=== PATIENT | male | born 1990 | race Caucasian/White ===

== ENCOUNTER → 2019-07-19 14:45 | Outpatient (CLI) | payer BC, SELFPAY ==
--- NOTE | ~2019-07-19 | XR_ITS ---
EXAMINATION: XR ankle LT min 3V DATE: 07/19/2019 15:00 INDICATION: Left ankle pain. TECHNIQUE: 4 views of left ankle were obtained. COMPARISON: Left ankle radiographs 09/08/2003 FINDINGS: Bone alignment is normal. No fracture. Joint spaces are well maintained. There is an enthes ophyte at posterior aspect of calcaneal tuberosity. IMPRESSION: 1. No fracture. Reviewed, dictated and finalized at location A. ISH RUBBER IMPRESSION: 1. No fracture.
== END ==
PROVIDERS: PCP Emergency Medicine; Visit Provider Emergency Medicine
DX: M25.572 Pain in left ankle and joints of left foot (principal)
CPT/HCPCS: 73610

== ENCOUNTER 2019-08-11 13:31 | Emergency (ER) | payer BC, SELFPAY ==
--- NOTE | ~2019-08-11 | XR_ITS ---
EXAMINATION: XR chest 2V DATE: 08/11/2019 14:28 INDICATION: Chest pain TECHNIQUE: PA and lateral views of the chest are obtained. COMPARISON: None available FINDINGS: The lungs are free of acute opacities. There is no pleural effusion or pneumothorax. The ca rdiomediastinal silhouette is normal. The visualized bones and soft tissues are unremarkable. IMPRESSION: 1. No acute cardiopulmonary abnormality. Reviewed, dictated and finalized at location A. WORKER
[2019-08-11 13:50] VITALS: BP 128/73; PULSE 86; RESP 19; TEMP 36.8; O2SAT 98
--- NOTE | 2019-08-11 13:50 | ECG_ITS ---
Measurements Intervals [place] Rate: 86 P: 64 MT: 167 QRS: 21 QRSD: 85 T: 23 QT: 333 QTc: 400 Interpretive Statements SINUS RHYTHM NORMAL ECG Electronically Signed On 08-11-2019 13:51:34 [employer] OPERATOR by Dustin Arora D.O.
[2019-08-11 13:58] LABS: Basophils Percent Auto 0.4 % (0.2-1.2); Eosinophils Absolute Auto 0.2 K/mm3 (0-0.3); Eosinophils Percent Auto 3.1 % (0-4.4); Hemoglobin 14.5 g/dL (14.0-18.0); Immature Granulocyte Absolute 0.05 K/mm3 (0.00-0.031); Immature Granulocyte Percent A 0.7 % (0-0.5); Lymphocytes Absolute Auto 2.18 K/mm3 (0.9-3.2); Lymphocytes Percent Auto 31.7 % (18.3-44.2); Mean Corpuscular HGB Conc 33.7 g/dl (32-36); Mean Corpuscular Hemoglobin 29.9 pg (26-34); Mean Corpuscular Volume 88.7 fl (80-100); Mean Platelet Volume 9.2 fl (7.4-10.4); Monocytes Absolute Auto 0.4 K/mm3 (0.1-0.6); Neutrophils Percent Auto 58.1 % (45.5-73.1); Platelet Count Result 414 k/mm3 (150-375); Red Blood Count 4.85 M/mm3 (4.6-6.20); White Blood Count 6.9 K/mm3 (4.5-10.0)
[2019-08-11 14:09] LABS: Blood Urea Nitrogen 21 mg/dL (9-20); Calcium 9.1 mg/dL (8.4-10.2); Carbon Dioxide 28 mmol/L (22-30); Chloride 96 mmol/L (98-107); Estimated Glomerular Filt Rate 49; Glucose 79 mg/dL (75-110); Potassium 4.7 mmol/L (3.4-5.0); Prothrombin Time 12.9 Seconds (11.1-14.7); Sodium 138 mmol/L (137-145)
[2019-08-11 14:21] LABS: Troponin I < 0.012 ng/mL (0.000-0.034)
[2019-08-11 14:34] VITALS: BP 128/97; PULSE 85; RESP 16; TEMP 36.8; O2SAT 97
--- NOTE | 2019-08-11 15:52 | ED.GENADULT ---
HPI - General Adult General Chief complaint: Chest Pain Stated complaint: chest pain x 4 days Time Seen by Provider: 08/11/19 13:49 Source: patient Mode of arrival: ambulatory Limitations: no limitations History of Present Illness HPI narrative: Patient is a 29-year-old male who presents with chest pain that is been present off and on for the last 4 days pain presents in random locations of the left and right chest is made worse with exertion patient notes he was riding the treadmill today and had aching across the chest which resolved after cessation of working outpatient denies any recent illness similar occurrence in the past nor is he been seen for this complaint and presents per private vehicle in no distress Related Data Home Medications Medication Instructions Recorded Confirmed albuterol sulfate [ProAir HFA] INHALATION 08/11/19 omeprazole 08/11/19 08/11/19 Allergies Allergy/AdvReac Type Severity Reaction Status Date / Time shellfish derived Allergy Severe Anaphylactic Verified 08/11/19 14:35 Shock azithromycin Allergy Unknown Unknown Verified 08/11/19 14:35 iodine Allergy Unknown Edema Verified 08/11/19 14:35 sulfamethizole Allergy Unknown Nausea Verified 08/11/19 14:35 trimethoprim Allergy Unknown Nausea Verified 08/11/19 14:35 Review of Systems Review of Systems: All systems reviewed & are unremarkable except as noted in HPI and below PMFSH Social History Social History Smoking status: Never smoker Alcohol intake: current Gender identity (if verbalized by the patient): Male Exam Narrative: Exam Narrative: GENERAL: Well-appearing, well-nourished, and in no acute distress. HEAD: Normocephalic, atraumatic. EYES: PERRLA and EOMI. ENT: Nares clear, no rhinorrhea or epistaxis. Mucous membranes moist. Oropharynx without tonsillar hypertrophy exudate or other lesions. NECK: Supple. No adenopathy or masses. CHEST: Clear to auscultation. No respiratory distress. No wheezes rales or rhonchi HEART: Regular rate and rhythm. No murmur heard. Normal peripheral pulses. ABDOMEN: Soft, nontender, nondistended EXTREMITIES: Normal range of motion. No edema. SKIN: Warm, dry, no rash. NEURO: No focal deficits. Alert and oriented x3. Cranial nerves II through XII grossly intact PSYCH: Normal mood and affect. Course Course Emergency Course: Patient in the room at this time denying any pain resting comfortably in the room afebrile nontoxic-appearing no distress Vital Signs Vital signs: Vital Signs Temperature 98.2 F 08/11/19 13:50 Pulse Rate 86 08/11/19 13:50 Respiratory Rate 19 08/11/19 13:50 Blood Pressure 128/73 08/11/19 13:50 Pulse Oximetry 98 08/11/19 13:50 Temperature 98.2 F 08/11/19 14:34 Pulse Rate 85 08/11/19 14:34 Respiratory Rate 16 08/11/19 14:34 Blood Pressure 128/97 H 08/11/19 14:34 Pulse Oximetry 97 08/11/19 14:34 Medical Decision Making MDM Narrative Medical decision making narrative: Patients EKGs and labs are without significant high risk changes. Cardiac risk factor were reviewed. Patient is felt likely to be low risk for ACS and reasonable for further risk stratification testing as an outpatient. Pain was not sudden or maximal in onset without tearing or ripping. quality. No other signs or symptoms to suggest aortic dissection. A low-risk Wells criteria is noted. PE is felt to be unlikely. No pneumonia or URI symptoms were seen on evaluation today. Patient is felt to b resonable for continued evaluation as an outpatient. Vital Signs Vital Signs: Vital Signs Temperature 98.2 F 08/11/19 13:50 Pulse Rate 86 08/11/19 13:50 Respiratory Rate 19 08/11/19 13:50 Blood Pressure 128/73 08/11/19 13:50 Pulse Oximetry 98 08/11/19 13:50 Temperature 98.2 F 08/11/19 14:34 Pulse Rate 85 08/11/19 14:34 Respiratory Rate 16 08/11/19 14:34 Blood Pressure 128/97 H 08/11/19 14:34
[2019-08-11] MEDS: SODIUM CHLORIDE 0.9% IV 1,000 ML 999 ML IV CONT (16:04)
[2019-08-11 16:06] VITALS: BP 116/88; PULSE 81; RESP 12; O2SAT 98
[2019-08-11 16:31] LABS: Troponin I < 0.012 ng/mL (0.000-0.034)
--- NOTE | 2019-08-15 12:31 | PC.NURSE ---
LATE ENTRY This note is being entered to document information to the patient's record. The following information was omitted on [08/11/19], by [eugene cardenas]. ns start at 1604 end 1700
== END 2019-08-11 17:45 | disposition home or self-care (01) ==
PROVIDERS: Emergency Medicine Emergency Medical Services; Emergency Provider Emergency Medicine; PCP Emergency Medicine
DX: R07.9 Chest pain, unspecified (principal)
CPT/HCPCS: 36415; 71046; 80048; 84484; 85025; 85610; 85730; 93005; 96360; 99284; J7030

== ENCOUNTER 2020-05-25 02:23 | Outpatient (CLI) | payer BC, SELFPAY ==
[2020-05-25 18:46] LABS: SARS-CoV-2 RNA PCR Negative
== END 2020-05-25 02:24 | disposition home or self-care (01) ==
LOC: ANHCOVIDDT 02:24
PROVIDERS: PCP Emergency Medicine; Visit Provider Surgery
DX: Z01.812 Encounter for preprocedural laboratory examination (principal); Z20.828 Contact with and (suspected) exposure to other viral communicable diseases
CPT/HCPCS: 87635; C9803; U0003

== ENCOUNTER 2020-05-28 01:07 | Day surgery (SDC) | payer BC, SELFPAY ==
[2020-05-21 14:21] VITALS: BMI 25.8
[2020-05-28] MEDS: LACTATED RINGERS 1,000 ML 30 ML IV CONT ×2 (12:29→15:07)
[2020-05-28 12:32] VITALS: BP 104/75; PULSE 79; RESP 16; TEMP 37.3; O2SAT 99
--- NOTE | 2020-05-28 13:30 | P.PNAN_ITS ---
Anes - Initial Pre Proc Eval Procedure: Operation Date: 05/28/20 14:00 Proposed Procedures p Excision Of Pilonidal Cyst and Tract - Uziel Roberts MD Date/Time: 05/28/20 13:30 Surgeon: Uziel Roberts MD Pre Op Diagnosis: Pilonidal Cyst Patient Data Age: 30 Gender: M Height: 1.75 m Weight: 79.4 kg Last Vital Signs Temp 37.3 C 05/28/20 12:32 Pulse 79 05/28/20 12:32 Resp 16 05/28/20 12:32 BP 104/75 05/28/20 12:32 Pulse Ox 99 05/28/20 12:32 Allergies Allergy/AdvReac Type Severity Reaction Status Date / Time shellfish derived Allergy Severe Anaphylactic Verified 05/28/20 12:03 Shock Home Medications Medication Instructions Recorded Confirmed Type albuterol sulfate [ProAir HFA] 1 puff INHALATION PRN PRN 08/11/19 05/28/20 History omeprazole 20 mg PO PRN PRN 08/11/19 05/28/20 History Patient hx anesthesia problems: none Family hx anesthesia problems: none [facility] Past Medical History Medical History GERD (gastroesophageal reflux disease) Surgical History Surgical History [place] teeth removed Social History Social History Smoking status: Never smoker Second hand tobacco smoke exposure: No Alcohol intake: unknown Substance use: never Substance use type: does not use Living arrangements: with friend(s) Gender identity (if verbalized by the patient): Male Spiritual care concerns: No Anes - Eval Final PreProcedure Day of Procedure 05/28/20 13:30 Patient weight: overweight Heart: regular rate and rhythm Lungs: clear to auscultation and normal air movement Airway: Mallampati scale class II Neurological: alert and oriented Last oral intake: >/= 8 hours ASA classification: II Emergent: no Anesthetic plan: proceed Anesthesia type and monitoring: general ETT and standard monitoring Informed Consent: The patient's anesthetic plan and its attendant risks and benefits were discussed with the patient/family/POA. Questions were solicited and answers provided to the satisfaction of the patient/family/POA.
--- NOTE | 2020-05-28 13:47 | WPDHPUPDATE1 ---
History and Physical Update Update Date/Time: 05/28/20 13:47 History and Physical has been reviewed, including an updated exam of the patient. There are NO changes in the patient's condition. Risks, benefits, and alternatives have been discussed and questions answered. Patient agrees to proceed with procedure.
[2020-05-28] MEDS: ceFAZolin 2 GM/D5W 50 ML 2 GM/50 ML BAG IVPB (14:00)
[2020-05-28] MEDS: BUPIVACAINE/EPINEPHRINE 0.25% 10 ML VIAL 20 ML INFILTRATE (14:27)
[2020-05-28 15:07] VITALS: BP 133/102; PULSE 90; RESP 15; O2SAT 99
[2020-05-28 15:15] VITALS: BP 114/72; PULSE 95; RESP 16; O2SAT 98
--- NOTE | 2020-05-28 15:25 | P.OP_ITS ---
Procedure Note - Detailed Date of procedure: 05/28/20 Pre-op diagnosis: Pilonidal Cyst Post-op diagnosis: same Procedure performed: Excision of skin and subcutaneous tracks of pilonidal cyst Description of procedure: The patient was brought to the operating room and on the OR cart general anesthesia was established by Steffen anesthesia. This was via oral endotracheal tube. Following this the patient was prepared for prone positioning. A protective mask was placed across his face allowing the endotracheal tube to come out the side. He was then rolled prone on to the operating room table. The hair in the area of the pilonidal cyst and on the buttocks was clipped. Following this a small amount of benzoin was applied to each buttock and the buttocks were taped apart. This nicely exposed the anais crease where the 3 small pore-like openings could be seen right in the crease. Following this appropriate prepping with Betadine was completed. The area was draped off. Following this time-out was performed confirming patient site of surgery. Following this a curvilinear S shaped incision was outlined. This included excision of the skin of the crease along with the openings of the 3 cyst- like tracks. I then carefully placed local anesthetic along the 2 lines and then incision was made with a 15 blade knife. The skin and the subcutaneous tracts were excised using Bovie cautery down to underlying fascia. The most superior tract was cut across, but we noticed it and that it had some hair in it so we grabbed this with an Allis and went below it carefully completely excising it. Once the skin and subcutaneous tissue was removed I placed a long stitch on the left side of the specimen and a short suture was placed superior. This was passed off the field for pathologic evaluation. Closure was then obtained in layers using buried subcutaneous sutures of 2-0 Vicryl to approximate the subcutaneous tissues in two levels and then a vertical mattress suture or simple sutures of 3-0 nylon were used on the skin level to approximate the skin edges. Following this dressing was applied using Telfa, a 4 x 4 and 2 Tegaderms. Patient was then again rolled back onto the OR cart and subsequently extubated by anesthesia. He tolerated the procedure well. Estimated blood Loss approximately 6 cc. Anesthesia: other (General IV Sedation) Surgeon: Uziel Roberts MD Loss Prevention Officer: WILMAN Richardson, OR 1st assist Estimated blood loss (mL): 6 Drains: No Packing: No Pathology: yes ( skin and subcutaneous tissue from anais crease area.) Complications: No immediate complications Condition: stable Disposition: PACU Findings: Small openings in the skin extending to tracks in the subcutaneous tissue along the pilonidal area.
[2020-05-28 15:30] VITALS: BP 120/70; PULSE 88; RESP 16; O2SAT 98
[2020-05-28 15:41] VITALS: BP 120/67; PULSE 75; RESP 16
[2020-05-28] MEDS: oxyCODONE HCL (*CRX) 5 MG TAB IR PO (15:54)
[2020-05-28 16:11] VITALS: BP 110/62; PULSE 71; RESP 16
== END 2020-05-28 16:30 | disposition home or self-care (01) ==
PROVIDERS: PCP Emergency Medicine; Visit Provider Surgery
PROC: (CPT 11772; principal; 2020-05-28 14:00)
DX: L05.91 Pilonidal cyst without abscess (principal); Z79.51 Long term (current) use of inhaled steroids; K21.9 Gastro-esophageal reflux disease without esophagitis
CPT/HCPCS: 11772; 88304; 88305; A9270; J0330; J0690; J1100; J2250; J2405; J2704; J3010; J7120